=== PATIENT | male | born 1960 ===

== ENCOUNTER 2017-06-27 07:38 | Emergency (ER) | payer SELFPAY ==
[2017-06-27 07:48] VITALS: BP 137/85; PULSE 72; RESP 16; TEMP 97.8; O2SAT 98
--- NOTE | 2017-06-27 08:37 | ED PDOC ---
HPI: Eye Injury/Pain Time Seen by Provider: 06/27/17 07:53 Chief Complaint (Nursing): Eye Problem Chief Complaint (Provider): Eye Redness/Itchiness History Per: Patient History/Exam Limitations: no limitations Onset/Duration Of Symptoms: Days (x 2) Current Symptoms Are (Timing): Still Present Additional Complaint(s): 56 year old male presents to the Emergency Department complaining of bilateral eye itchiness and red since last night. Denies any visual changes, pain, or discharge. Patient does not wear contacts or glasses. PMD: None Past Medical History Reviewed: Historical Data, Nursing Documentation, Vital Signs Vital Signs: Last Vital Signs Temp 97.8 F 06/27/17 07:47 Pulse 72 06/27/17 07:47 Resp 16 06/27/17 07:47 BP 137/85 06/27/17 07:47 Pulse Ox 98 06/27/17 07:47 - Family History Family History: States: Unknown Family Hx - Home Medications Home Medications: Ambulatory Orders Medication Instructions Recorded Acetaminophen [Tylenol 325mg tab] 325 mg PO PRN PRN 07/01/16 Olopatadine HCl [Pataday] 1 drop OU DAILY PRN #1 bottle 06/27/17 - Allergies Allergies/Adverse Reactions: Allergies Allergy/AdvReac Type Severity Reaction Status Date / Time No Known Allergies Allergy Verified 07/01/16 13:15 Review of Systems ROS Statement: Except As Marked, All Systems Reviewed And Found Negative Eyes: Positive for: Redness (and itchiness: Bilaterally). Negative for: Pain, Vision Change, Other (Discharge) Physical Exam - Reviewed Nursing Documentation Reviewed: Yes Vital Signs Reviewed: Yes - Physical Exam Appears: Positive for: Non-toxic, No Acute Distress Head Exam: Positive for: ATRAUMATIC, NORMAL INSPECTION, NORMOCEPHALIC Skin: Positive for: Normal Color Eye Exam: Positive for: EOMI, PERRL, Conjunctival injection (bilaterally). Negative for: Other (discharge, photophobia, or tearing) Comments: Eye exam, continued: No abnormal fluorescein uptake. - ECG O2 Sat by Pulse Oximetry: 98 (RA) Pulse Ox Interpretation: Normal Medical Decision Making Medical Decision Making: Clinical Impression: Allergic Conjunctivitis Time: 8:32 Plan: Patient is medically stable for discharge home. Provided with rx for Pataday drops. Patient is to follow up with ophthalmology as needed, referral to Dr. Guerrero provided. There is agreement to discharge plan. Return if symptoms acute worsen. Scribe Attestation: Documented by Yas Taylor, acting as a scribe for Jennifer Driver MD Provider Scribe Attestation: All medical record entries made by the Scribe were at my direction and personally dictated by me. I have reviewed the chart and agree that the record accurately reflects my personal performance of the history, physical exam, medical decision making, and the department course for this patient. I have also personally directed, reviewed, and agree with the discharge instructions and disposition. Disposition - Clinical Impression Clinical Impression: Allergic conjunctivitis - Patient ED Disposition Is Patient to be Admitted: No Counseled Patient/Family Regarding: Studies Performed, Diagnosis, Need For Followup, Rx Given - Disposition Referrals: Jacobo Guerrero MD [Staff Provider] - Disposition: Routine/Home Disposition Time: 08:32 Condition: STABLE Prescriptions: Olopatadine HCl [Pataday] 1 drop OU DAILY PRN #1 bottle PRN Reason: Allergy Symptoms Instructions: Conjunctivitis (ED) Forms: [employer] (Bulgarian) Print Language: BENGALI - POA Present On Arrival: None
== END 2017-06-27 08:53 | disposition home or self-care (01) ==
LOC: H.ER 07:38
DX: H10.10 Acute atopic conjunctivitis, unspecified eye (principal)